=== PATIENT | female | born 1975 | race Caucasian/White ===

== ENCOUNTER 2017-04-25 07:23 | Emergency (ER) | payer BC ==
[2017-04-25] MEDS ORDERED: Ondansetron 4 MG Tab.DIS PO ONE (07:57)
[2017-04-25] MEDS ORDERED: Meclizine 25 MG Tab PO ONE (07:58)
--- NOTE | 2017-04-25 08:01 | EDM.PDOC ---
ED HPI GENERAL MEDICAL PROBLEM - General Chief Complaint: Neuro Symptoms/Deficits Stated Complaint: DIZZY Time Seen by Provider: 04/25/17 07:44 Source of Information: Reports: Patient, Family, RN Notes Reviewed History Limitations: Reports: No Limitations - History of Present Illness INITIAL COMMENTS - FREE TEXT/NARRATIVE: 42-year-old female presents emergency department day complaint of dizziness, she states it started early this morning was intermittent however now it is persistent she is experiencing nausea has never experienced this before has not tried anything for the dizziness, denies any other symptoms has no significant past medical history - Related Data Allergies Allergy/AdvReac Type Severity Reaction Status Date / Time Penicillins Allergy Hives Verified 04/13/14 18:04 Home Meds: Home Meds NK [No Known Home Meds] 04/13/14 [History] Past Medical History Cardiovascular History: Reports: Other (See Below) Other Cardiovascular History: palpitations 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: Other (See Below) Other OB/BYN History: cryo surgery Neurological History: Reports: Migraines - Infectious Disease History Infectious Disease History: Reports: Chicken Pox - Past Surgical History Female Surgical History: Reports: Tubal Ligation Social & Family History - Tobacco Use Smoking Status *Q: Never Smoker Second Hand Smoke Exposure: No - Caffeine Use Caffeine Use: Reports: Coffee, Soda - Alcohol Use Days Per Week of Alcohol Use: 1 Number of Drinks Per Day: 1 Total Drinks Per Week: 1 - Recreational Drug Use Recreational Drug Use: No ED ROS ENT - Review of Systems Review Of Systems: See Below Constitutional: Denies: Fever, Chills HEENT: Reports: No Symptoms Cardiovascular: Reports: No Symptoms GI/Abdominal: Reports: No Symptoms : Reports: No Symptoms Musculoskeletal: Reports: No Symptoms Skin: Reports: No Symptoms Neurological: Reports: Dizziness, Numbness (Initially had some numbness in the right side of her body that is completely resolved) Psychiatric: Reports: No Symptoms ED EXAM, ENT - Physical Exam Exam: See Below Text/Narrative:: General: Female, not in any distress, alert and oriented x3 HEENT: head is atraumatic normocephalic, eyes pupils equal round reactive to light, sclera clear no conjunctivitis appreciated, extraocular eye movements intact no nystagmus noted, hints exam was negative. Ears tympanic membranes clear and cowan landmarks and light reflex are present bilaterally canals are clear. Nose no septal deviation, nares are clear, no blood present. Mouth mucosa is moist and pink no erythema or exudate noted in soft palate, tongue is midline uvula is midline, dentition is intact. Neck: Supple no thyromegaly no tracheal deviation. Nodes: Cervical nodes subclavicular nodes nontender no palpable lymphadenopathy noted. Lungs: clear to auscultation bilaterally with symmetrical respirations, no adventitious noise appreciated. CV: Regular rate and rhythm S1 and S2 appreciated no murmurs rubs or gallops noted. Abdomen: Soft, nontender, no palpable masses or organomegaly appreciated, no distention no guarding bowel sounds are present, . Neuro: Cranial nerves II through XII grossly intact Hallpike was negative, turk 5 x 5 in upper and lower extremities there is no dysdiadochokinesis able to do rapid alternating movements and finger to nose without difficulty Skin: Warm and dry, intact Extremities: No lower extremity edema appreciated, Course - Vital Signs Last Recorded V/S: Last Vital Signs Temp 97.0 F 04/25/17 07:31 Pulse 66 04/25/17 08:40 Resp 18 04/25/17 07:31 BP 128/77 04/25/17 08:40 Pulse Ox 95 04/25/17 07:31 - Orders/Labs/Meds Meds: Medications Discontinued Medications Generic Name Dose Route Start Last Admin Trade Name Deng PRN Reason Stop Dose Admin Lorazepam 0.5 mg 04/25/17 08:40 04/25/17 08:44 Ativan PO 04/25/17 08:41 0.5 mg ONETIME ONE Administration Meclizine HCl 25 mg 04/25/17 07:58 04/25/17 08:01 Antivert PO 04/25/17 07:59 25 mg ONETIME ONE Administration Ondansetron HCl 4 mg 04/25/17 07:57 04/25/17 08:01 Zofran Odt PO 04/25/17 07:58 4 mg ONETIME ONE Administration Departure - Departure Time of Disposition: 09:59 Disposition: Home, Self-Care 01 Condition: Good Clinical Impression: Vertigo - Discharge Information Referrals: Cody Chase MD [Primary Care Provider] - Forms: ED Department Discharge Additional Instructions: Use meclizine as needed for baseline control of dizziness, for breakthrough use Ativan, Please followup with your primary care provider in 3-5 days if not better, please call return to the emergency department with worsening of symptoms. - Assessment/Plan Plan: Assessment Acuity = acute Site and laterality = vertigo Etiology = unknown etiology Manifestations = nausea Location of injury = Home Lab values = none Plan She had good improvement with combination meclizine and Ativan, plan follow-up with her primary care in 3-5 days for reevaluation no improvement Patient was in agreement with the plan all questions were answered, they were instructed to return to the emergency department or call for worsening symptoms. This note was dictated using [employer]bolt voice recognition software please call with any questions.
[2017-04-25] MEDS ORDERED: LORazepam 0.5 MG Tab PO ONE (08:40)
[2017-04-25 09:11] VITALS: BP 128/77
== END 2017-04-25 10:12 | disposition home or self-care (01) ==
LOC: JP.ED 07:23
DX: R42 Dizziness and giddiness (principal); Z88.0 Allergy status to penicillin; Z98.51 Tubal ligation status
CPT/HCPCS: 99284; A9270

== ENCOUNTER 2025-01-05 07:50 | Day surgery (SDC) | payer BC ==
[2025-01-05] MEDS ORDERED: Propofol 200 MG/20 ML SDV ONE (08:31)
[2025-01-05] MEDS ORDERED: fentaNYL 100 MCG/2 ML SDV ONE (08:31)
[2025-01-05] MEDS ORDERED: Midazolam 1 MG/ML 2 ML SDV ONE (08:31)
[2025-01-05] MEDS: Lactated Ringers 1,000 ML IV SCH (08:53)
[2025-01-05 12:28] VITALS: BP 150/84; PULSE 78
== END 2025-01-05 12:40 | disposition home or self-care (01) ==
LOC: JP.SDS 07:50
PROVIDERS: ATTEND Surgery
DX: Z12.11 Encounter for screening for malignant neoplasm of colon (principal); K21.9 Gastro-esophageal reflux disease without esophagitis; Z88.0 Allergy status to penicillin
CPT/HCPCS: 45378; 81025; J2250; J2704; J3010; J7120; 00812-QZ